=== PATIENT | male | born 1985 | race Caucasian/White ===

== ENCOUNTER 2018-08-14 08:32 | Emergency (ER) | payer OTHER ==
[2018-08-14 09:05] VITALS: BP 150/92
--- NOTE | 2018-08-14 09:21 | ED Physician Documentation ---
History of Present Illness - Stated complaint Stated Complaint: FLU LIKE SX - Chief complaint Chief Complaint: Fever - History obtained from History obtained from: Patient - History of Present Illness Pain level max: 0 Pain level now: 0 - Additonal information Additional information: 32-year-old male presents to the emergency department with fever, rhinorrhea, congestion for the past several days. Entire family is sick with same. Is using Motrin and Tylenol at home for fevers. Better with Motrin and Tylenol. Nothing makes it worse. No vomiting. Immunizations are up-to-date. Review of Systems Constitutional: reports: Fever, Chills Nose: reports: Rhinorrhea / runny nose, Congestion Respiratory: reports: Cough GI: denies: Vomiting Skin: denies: Rash Musculoskeletal: denies: Neck pain, Back pain PD PAST MEDICAL HISTORY - Past Medical History Past Medical History: No - Past Surgical History Past Surgical History: No - Allergies Allergies/Adverse Reactions: Allergies Allergy/AdvReac Type Severity Reaction Status Date / Time No Known Drug Allergies Allergy Verified 08/14/18 09:05 - Living Situation Living Situation: reports: With family Living Arrangement: reports: At home - Social History Does the pt smoke?: No Does the pt drink ETOH?: No - Family History Family history: reports: Non contributory - Immunizations Immunizations are current?: Yes PD ED PE NORMAL - Vitals Vital signs reviewed: Yes - General General: Alert and oriented X 3, No acute distress, Well developed/nourished - HEENT HEENT: PERRL, Ears normal, Moist mucous membranes, Pharynx benign - Neck Neck: Supple, no meningeal sign - Cardiac Cardiac: RRR, Strong equal pulses - Respiratory Respiratory: No respiratory distress, Clear bilaterally - Abdomen Abdomen: Soft, Non tender, Non distended - Derm Derm: Warm and dry, No rash - Neuro Neuro: Alert and oriented X 3 - Psych Psych: Normal mood, Normal affect Results - Vitals Vitals: Vital Signs - 24 hr 08/14/18 09:03 Temperature 36.9 C Heart Rate 109 H Respiratory 14 Rate Blood Pressure 150/92 H O2 Saturation 97 Oxygen O2 Source Room air PD MEDICAL DECISION MAKING - ED course Complexity details: considered differential, d/w patient ED course: 32-year-old male with what appears to be influenza A. Entire family is sick with same. Currently rampant in the community. Will hold off testing. Not in the timeframe for Tamiflu. He is well-appearing, nontoxic. We will continue supportive care and follow-up with his doctor. Patient counseled regarding signs and symptoms for which I believe and urgent re-evaluation would be necessary. Patient with good understanding of and agreement to plan and is comfortable going home at this time This document was made in part using voice recognition software. While efforts are made to proofread this document, sound alike and grammatical errors may occur. Departure - Departure Disposition: 01 Home, Self Care Clinical Impression: Influenza A Condition: Good Instructions: ED Flu Follow-Up: MARLEN TERAN MD [Primary Care Provider] - Within 1 week Comments: Drink plenty of fluids and rest. Return if you worsen. You can use Motrin or Tylenol as needed for fever. Forms: Activity restrictions
== END 2018-08-14 09:59 | disposition home or self-care (01) ==
LOC: ED 08:32
DX: J10.1 Influenza due to other identified influenza virus with other respiratory manifestations (principal)
CPT/HCPCS: 99282; 99283